=== PATIENT | female | born 1995 | race Caucasian/White ===

== ENCOUNTER → 2018-08-03 | Outpatient (CLI) | payer OTHER ==
--- NOTE | 2018-08-03 11:51 | CARD ---
MR#: [id number] Date of Study: 08/03/2018 Ordering Physician: SHEILA WANG, Referring Physician: SHEILA WANG, Tech: Sidra Posey APPROVED REPORT EXAM: Two-dimensional and M-mode echocardiogram with Doppler and color Doppler. Other Information Quality : GoodHR: 78bpm INDICATION Murmur 2D DIMENSIONS RVDd2.3 (2.9-3.5cm)Left Atrium(2D)3.5 (1.6-4.0cm) IVSd0.4 (0.7-1.1cm)Aortic Root(2D)1.7 (2.0-3.7cm) LVDd3.0 (3.9-5.9cm)LVOT Diameter2.0 (1.8-2.4cm) PWd2.8 (0.7-1.1cm)LVDs3.0 (2.5-4.0cm) FS (%) 3.3 %SV2.8 ml Aortic Valve AoV Peak Farhat.154.9cm/sAoV VTI31.9cm AO Peak GR.9.6mmHgLVOT Peak Farhat.114.2cm/s AO Mean GR.5mmHgAVA (VMAX)2.21cm2 Mitral Valve MV E Ghjskuar032.5cm/sMV DECEL [id number] MV A Lghrahqw74.1cm/sE/A Ratio1.5 Pulmonary Valve PV Peak Dagkvvbs691.8cm/s Tricuspid Valve TR P. Xupgbvwp954ob/sRAP [id number] TR Peak Gr.84mqRsYSNM08bwAl Pulmonary Vein S1 Lsnyckpr22.2cm/sD2 Swkkqbuc06.7cm/s PVa [id number] LEFT VENTRICLE The left ventricle is normal size. There is normal left ventricular wall thickness. The left ventricu lar systolic function is normal. The ejection fraction is estimated at 60%. There is normal LV segmen royal wall motion. The left ventricular diastolic function and filling is normal for age. RIGHT VENTRICLE The right ventricle is normal size. There is normal right ventricular wall thickness. The right ventr icular systolic function is normal. ATRIA The left atrium size is normal. The right atrium size is normal. The interatrial septum is intact wit h no evidence for an atrial septal defect or patent foramen ovale as noted on 2-D or Doppler imaging. AORTIC VALVE The aortic valve is normal in structure and function. Doppler and Color Flow revealed no significant aortic regurgitation. There is no significant aortic valvular stenosis. MITRAL VALVE The mitral valve is normal in structure and function. There is no mitral valve stenosis. Doppler and Color Flow revealed no mitral valve regurgitation noted. TRICUSPID VALVE The tricuspid valve is normal in structure and function. Doppler and Color Flow revealed trace tricus pid regurgitation. There is no tricuspid valve stenosis. PULMONIC VALVE The pulmonary valve is normal in structure and function. Doppler and Color Flow revealed no pulmonic valvular regurgitation. GREAT VESSELS The aortic root is normal in size. Normal pulmonary venous flow (Doppler). The IVC is normal in size and collapses >50% with inspiration. PERICARDIAL EFFUSION There is no evidence of significant pericardial effusion. Critical Notification Critical Value: No <Conclusion> The left ventricular systolic function is normal. The ejection fraction is estimated at 60%. There is normal LV segmental wall motion. Doppler and Color Flow revealed trace tricuspid regurgitation. There is no evidence of significant pericardial effusion. Signed by : Jose Rafael Mcgregor, Electronically Approved : 08/03/2018 11:50:12
== END | disposition home or self-care (01) ==
LOC: ECHO 10:02
PROVIDERS: ATTEND Neuromusculoskeletal Medicine & OMM
DX: R01.1 Cardiac murmur, unspecified (principal)
CPT/HCPCS: 93306